=== PATIENT | male | born 1990 | race Hispanic/Latino ===

== ENCOUNTER 2020-03-30 18:58 | Inpatient (IN) | payer OTHER, SELFPAY ==
[~2020-03-30 18:58] MED LIST: Iopamidol-370 76% 500 ML 1 ML ONE
[2020-03-30] MEDS ORDERED: Adacel (T-DAP) 0.5 ML SYRINGE ONE (19:00)
[2020-03-30] MEDS ORDERED: Fentanyl 100 MCG/2 ML VIAL ONE (19:06)
[2020-03-30 19:31] LABS: #Eosinphils 0.1 thou/uL (0.0-0.7); #Lymphocytes 1.2 thou/uL (1.20-3.40); #Monocytes 0.9 thou/uL (0.11-0.59); #Neutrophils 15.7 thou/uL (1.40-6.50); %Basophils 0.1 % (0.0-1.0); %Eosinophils 0.3 % (0.0-10.0); %Lymphocytes 6.5 % (21.0-51.0); %Monocytes 5.2 % (0.0-10.0); %Neutrophils 87.8 % (42.0-75.0); Mean Corpuscular HGB CONC 34.2 g/dL (32.0-36.0); Mean Corpuscular Hemoglobin 31.5 pg (27.0-31.0); Mean Platelet Volume 7.9 fL (7.4-10.4); Platelet Count 224 thou/uL (130-400); RBC Distribution Width 12.1 % (11.5-14.5); Red Blood Cell (RBC) Count 5.08 mill/uL (4.70-6.10); White Blood Cell (WBC) Count 17.8 thou/uL (4.8-10.8)
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
[2020-03-30 19:53] LABS: ALT (SGPT) 15 U/L (8-55); AST (SGOT) 40 U/L (5-34); Albumin 4.4 g/dL (3.5-5.0); Alcohol Less than 10 mg/dL (Less than 10); Alkaline Phosphatase 47 U/L (40-110); Anion Gap 16 mmol/L (10-20); BUN (Urea Nitrogen) 14 mg/dL (8.9-20.6); Bilirubin, Total 0.6 mg/dL (0.2-1.2); Calc. Creatinine Clearance 0 mL/min (70-130); Calcium 9.2 mg/dL (7.8-10.44); Carbon Dioxide 20 mmol/L (22-29); Chloride 106 mmol/L (98-107); Estimated GFR-MDRD 81; Globulin 3.5 g/dL (2.4-3.5); Glucose 154 mg/dL (70-105); Potassium 3.9 mmol/L (3.5-5.1); Protein, Total 7.9 g/dL (6.0-8.3); Sodium 138 mmol/L (136-145)
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
[2020-03-30 21:06] LABS: CKMB 9.6 ng/mL (0-6.6)
[2020-03-30] MEDS ORDERED: Morphine 4 MG/ML VIAL SLOW IVP PRN (21:10)
[2020-03-30] MEDS ORDERED: Dextrose 50% Abboject 50 ML SYRINGE SLOW IVP PRN (21:10)
[2020-03-30] MEDS ORDERED: Dextrose 5% in Water 1,000 ML IV PRN (21:10)
[2020-03-30] MEDS ORDERED: hydrALAZINE 20 MG/ML VIAL SLOW IVP PRN (21:10)
[2020-03-30] MEDS ORDERED: Ondansetron PF 4 MG/2 ML Vial IVP PRN (21:10)
[2020-03-30] MEDS ORDERED: traMADol HCl 50 MG TAB PO PRN ×2 (21:13)
[2020-03-30] MEDS ORDERED: Ondansetron PF 4 MG/2 ML Vial ONE (21:14)
[2020-03-30] MEDS ORDERED: Morphine 4 MG/ML VIAL ONE (21:17)
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
[2020-03-30] MEDS ORDERED: Lidocaine 1% (PF) 30 ML VIAL ONE (23:00)
[2020-03-30] MEDS ORDERED: Promethazine HCl 25 MG/ML VIAL ONE (23:33)
[2020-03-31] MEDS: Acetaminophen 500 MG TAB PO SCH ×4 (01:39→21:49)
[2020-03-31] MEDS: Sodium Chloride 0.9% 1,000 ML IV SCH ×4 (01:39→21:49)
[2020-03-31 01:59] VITALS: BMI 27.8
[2020-03-31 02:48] LABS: Anion Gap 19 mmol/L (10-20); BUN (Urea Nitrogen) 17 mg/dL (8.9-20.6); Calc. Creatinine Clearance 119 mL/min (70-130); Calcium 9.7 mg/dL (7.8-10.44); Carbon Dioxide 22 mmol/L (22-29); Chloride 105 mmol/L (98-107); Estimated GFR-MDRD 79; Glucose 188 mg/dL (70-105); Magnesium 2.2 mg/dL (1.6-2.6); Phosphorus 4.4 mg/dL (2.3-4.7); Sodium 141 mmol/L (136-145)
[2020-03-31 03:13] LABS: CKMB 27.7 ng/mL (0-6.6)
[2020-03-31 03:26] LABS: Band 15 % (5-11); Hemoglobin 15.6 g/dL (14.0-18.0); Lymphocytes 1 % (21-51); MDiff Complete? YES; Mean Corpuscular HGB CONC 33.2 g/dL (32.0-36.0); Mean Corpuscular Hemoglobin 30.9 pg (27.0-31.0); Mean Corpuscular Volume 93.1 fL (78.0-98.0); Mean Platelet Volume 8.6 fL (7.4-10.4); Monocytes 5 % (0-10); Neutrophil 79 % (42-75); Platelet Count 256 thou/uL (130-400); Platelet Morphology Comment Appears Adequate; RBC Distribution Width 12.4 % (11.5-14.5); RBC Morphology Normal; Red Blood Cell (RBC) Count 5.07 mill/uL (4.70-6.10); White Blood Cell (WBC) Count 22.5 thou/uL (4.8-10.8)
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
[2020-03-31] MEDS: Morphine 2 MG/ML VIAL SLOW IVP PRN ×4 (03:40→21:45)
[2020-03-31] MEDS: Gabapentin 300 MG CAP PO SCH ×2 (08:26→21:50)
[2020-03-31] MEDS: Famotidine 20 MG TAB PO SCH ×2 (08:26→21:50)
[2020-03-31] MEDS: Polyethylene Glycol 3350 17 GM Packet PO SCH (08:26)
[2020-03-31] MEDS: Senokot S 8.6-50 MG TAB PO SCH ×2 (09:51→21:50)
[2020-03-31] MEDS ORDERED: PHENYLEPHRINE-NS 100 MCG/ML 10 ML SYRINGE ONE (10:14)
[2020-03-31] MEDS ORDERED: Lidocaine 1% PF 5 ML VIAL ONE (10:14)
[2020-03-31] MEDS ORDERED: Dexamethasone 20 MG/5 ML VIAL ONE (10:14)
[2020-03-31] MEDS ORDERED: Ondansetron PF 4 MG/2 ML Vial ONE ×2 (10:14→17:09)
[2020-03-31] MEDS ORDERED: PROPOFOL 200 MG/20 ML VIAL ONE (10:14)
[2020-03-31] MEDS ORDERED: Rocuronium Bromide 10 MG/ML (10ML VIAL) ONE (10:14)
[2020-03-31] MEDS ORDERED: Ketorolac Tromethamine 30 MG/ML VIAL ONE (10:14)
[2020-03-31 10:57] LABS: Troponin I 0.036 ng/mL (< 0.028)
[2020-03-31 12:48] LABS: SARS-CoV-2 N Gene Positive; SARS-CoV-2 S Gene Negative; SARS-CoV-2 by NAA DETECTED (NotDetected); SARS-CoV-2 orf1ab Positive
[2020-03-31 12:49] LABS: SARS-CoV-2 MS2 Positive
[2020-03-31] MEDS ORDERED: Fentanyl 100 MCG/2 ML VIAL ONE ×2 (14:22→17:10)
[2020-03-31] MEDS ORDERED: HYDROmorphone 0.5 MG/0.5 ML SYRINGE ONE (14:22)
[2020-03-31] MEDS ORDERED: Midazolam HCl 2 mg/2 ml Vial ONE (14:52)
[2020-03-31] MEDS ORDERED: Bupivacaine HCl 0.5%/Epinephrine 1:200,000/PF 30 ml Vial ONE (16:30)
[2020-03-31] MEDS ORDERED: Bupivacaine/Epinephrine 0.25% 30 ML VIAL ONE (16:32)
[2020-03-31] MEDS ORDERED: Promethazine HCl 25 MG/ML VIAL IM PRN (18:07)
[2020-03-31] MEDS ORDERED: Ondansetron HCl/PF 4 MG/2 ML Vial IVP PRN (18:07)
[2020-03-31] MEDS ORDERED: PACU-Morphine 4MG/ML VIAL SLOW IVP PRN (18:07)
[2020-03-31] MEDS ORDERED: Promethazine HCl 25 MG/ML VIAL SLOW IVP PRN (18:07)
[2020-03-31] MEDS ORDERED: HYDROmorphone 2 MG/ML VIAL SLOW IVP PRN (18:07)
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
--- NOTE | 2020-03-31 19:25 | OP ---
DATE OF PROCEDURE: 03/31/2020 PREOPERATIVE DIAGNOSES: 1. Severely comminuted proximal right femoral shaft fractures. 2. Comminuted patellar fractures of the left knee. POSTOPERATIVE DIAGNOSES: 1. Severely comminuted proximal right femoral shaft fractures. 2. Comminuted patellar fractures of the left knee. PROCEDURES PERFORMED: 1. Open reduction and internal fixation using a long trochanteric fixation nail of the right femur. 2. Partial patellectomy and repair of the remaining patella to the patellar tendon. ANESTHESIA: General. TECHNIQUE: The patient was given preoperative IV antibiotics. He was taken to the operating room, placed in the supine position. Satisfactory general anesthesia was performed. The patient was then placed on the fracture table. All bony prominences were well padded. Traction was applied to the right foot and ankle, and C-arm verified good alignment of the comminuted fractures of the proximal to mid shaft of the right femur. An incision was made approximately 3 inches in length, just proximal to the greater trochanter, and under fluoroscopic visualization, a guidepin was placed to the greater trochanter, it was then over-reamed. The guidepin was placed through this portion of the femur, crossing all of the fragments and into the distal portion. Appropriate length kimberly was measured and the femur was then sequentially over-reamed up to 16 mm. A Synthes long trochanteric fixation nail that was 14 mm in diameter and 380 mm in length was inserted, crossing the comminuted fractures into the distal femur. The helical blade was inserted through the kimberly and into the femoral neck and head and was locked into place, and a 5.0 locking screw was placed distally. This allowed for excellent fixation of the fractures of the femur. The wounds were irrigated with antibiotic solution. They were closed using #2 Vicryl for the iliotibial band, 0 Vicryl for the fat and subcutaneous tissue, and the skin was closed with skin adithya. The wounds were infiltrated with a total of 30 mL of 0.25% Marcaine with epinephrine. Sterile dressing was applied. The leg was taken out of leg rush, and attention was then turned to the left lower extremity. It was sterilely prepped and draped in usual fashion. After exsanguination, tourniquet to the left thigh was raised to 250 mmHg. A longitudinal incision was made over the knee, immediately entering the knee joint, there was blood that was evacuated. There was significant comminution of the lower portion of the patella. The upper approximately half of the patella was still present. The holes were drilled through the patella, out the superior aspect of the patella, and the #2 FiberWire was used to capture the patellar tendon in a Marianne type suture and then it was tied over the remaining patella through those tunnels that were drilled previously in the patella. This provided excellent repair of the patella and allowed for preservation of half of the patella. The wound was irrigated and then closed using 0 Vicryl and then the skin was closed with skin adithya, and another 30 mL of 0.25% Marcaine with epinephrine was utilized in the left knee. Sterile dressing was applied and the patient was placed in a knee immobilizer. He was then awakened, extubated, and transferred to recovery room in stable condition. ESTIMATED BLOOD LOSS: 200 mL. COMPLICATIONS: None. TOURNIQUET TIME: On the left thigh was 34 minutes. Job ID: [id number]
--- NOTE | 2020-03-31 19:28 | RAD ---
RIGHT FEMUR TWO VIEWS: 03/31/20 HISTORY: Intraoperative films. This shows a long stem intramedullary kimberly and a gamma type nail in the right hip. The kimberly is stabiliz ing a comminuted proximal femoral shaft fracture in good position. IMPRESSION: Intramedullary kimberly placement for fixation of femoral fracture. POS: [facility]
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
[2020-04-01] MEDS: Acetaminophen 500 MG TAB PO SCH ×5 (00:53→23:47)
[2020-04-01] MEDS: Sodium Chloride 0.9% 1,000 ML IV SCH (05:28)
[2020-04-01] MEDS: Morphine 2 MG/ML VIAL SLOW IVP PRN (05:45)
[2020-04-01] MEDS ORDERED: traMADol HCl 50 MG TAB PO PRN (07:57)
[2020-04-01] MEDS ORDERED: traMADol HCl 50 MG TAB PO SCH (08:00)
[2020-04-01] MEDS: Polyethylene Glycol 3350 17 GM Packet PO SCH (08:18)
[2020-04-01] MEDS: Senokot S 8.6-50 MG TAB PO SCH ×2 (08:19→21:09)
[2020-04-01] MEDS: Gabapentin 300 MG CAP PO SCH ×2 (08:19→21:09)
[2020-04-01] MEDS: Famotidine 20 MG TAB PO SCH ×2 (08:19→21:09)
[2020-04-01] MEDS ORDERED: Enoxaparin Sodium 40 MG/0.4 ML SYRINGE SC SCH (11:00)
[2020-04-01] MEDS ORDERED: Morphine 2 MG/ML VIAL SLOW IVP PRN (14:23)
[2020-04-01] MEDS ORDERED: HYDROcodone/Acetaminophen 10/325 mg Tablet PO PRN (14:24)
[2020-04-01] MEDS: Morphine 4 MG/ML VIAL SLOW IVP PRN ×2 (14:37→17:42)
[2020-04-01] MEDS: HYDROcodone/Acetaminophen 10/325 mg Tablet PO PRN ×2 (15:27→21:12)
--- NOTE | 2020-04-01 15:34 | PRG ---
DATE OF SERVICE: 04/01/2020 SUBJECTIVE: The patient is 1 day status post ORIF of right proximal femoral shaft fracture utilizing kimberly and screws. He underwent partial left patellectomy with repair of the patellar tendon to the remaining superior portion of the patella. He had undergone irrigation and debridement and repair of the right knee laceration, and he has a nondisplaced right calcaneal fracture along with a sternal fracture and some rib fractures. The patient has been in bed and is breathing easy. He has fairly good pain control. OBJECTIVE: VITAL SIGNS: Latest vital signs; temperature 98.6, pulse 99, respiratory rate 18, blood pressure 148/85, O2 saturation 96% on room air. LABORATORY DATA: The patient is positive for COVID-19, which we were aware of preoperatively and took proper precautions. All four extremities are neurovascularly intact. PLAN: The patient will begin working with Physical and Occupational Therapy. He may weightbear as tolerated on the left lower extremity, but needs to avoid flexion of the left knee, and therefore, he is in a knee immobilizer. He needs to be nonweightbearing on the right lower extremity because of the calcaneal fracture. The patient will gradually increase activity and out of bedtime as tolerated. We will reorder additional laboratory tomorrow. Job ID: [id number]
[2020-04-01] MEDS: Ketorolac Tromethamine 30 MG/ML VIAL IVP SCH ×2 (17:04→23:46)
--- NOTE | 2020-04-01 21:44 | PDOC.BPN ---
- Brief Progress Note I have discussed the patient with the advanced practice provider and agree with the findings and plan of care annotated in their note dated 2019. I have examined the patient and reviewed the pertinent radiographic and laboratory findings. Briefly, he is doing well after nailing of his femur and repair of his left patella. PLAN: DVT prophylaxis Physical therapy Placement
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
[2020-04-02] MEDS: Morphine 4 MG/ML VIAL SLOW IVP PRN ×2 (03:52→19:38)
[2020-04-02] MEDS: Ketorolac Tromethamine 30 MG/ML VIAL IVP SCH (05:51)
[2020-04-02 05:52] LABS: #Lymphocytes 1.5 thou/uL (1.20-3.40); #Monocytes 0.9 thou/uL (0.11-0.59); #Neutrophils 5.3 thou/uL (1.40-6.50); %Basophils 0.2 % (0.0-1.0); %Eosinophils 0.5 % (0.0-10.0); %Lymphocytes 19.6 % (21.0-51.0); %Monocytes 11.5 % (0.0-10.0); %Neutrophils 68.1 % (42.0-75.0); Hemoglobin 6.9 g/dL (14.0-18.0); Mean Corpuscular HGB CONC 32.9 g/dL (32.0-36.0); Mean Corpuscular Hemoglobin 30.8 pg (27.0-31.0); Mean Corpuscular Volume 93.5 fL (78.0-98.0); Mean Platelet Volume 7.9 fL (7.4-10.4); Platelet Count 125 thou/uL (130-400); RBC Distribution Width 11.8 % (11.5-14.5); Red Blood Cell (RBC) Count 2.25 mill/uL (4.70-6.10); White Blood Cell (WBC) Count 7.8 thou/uL (4.8-10.8)
[2020-04-02] MEDS: Acetaminophen 500 MG TAB PO SCH ×2 (05:52→12:42)
[2020-04-02 06:01] LABS: Anion Gap 10 mmol/L (10-20); BUN (Urea Nitrogen) 17 mg/dL (8.9-20.6); Calc. Creatinine Clearance 170 mL/min (70-130); Calcium 7.9 mg/dL (7.8-10.44); Carbon Dioxide 25 mmol/L (22-29); Chloride 105 mmol/L (98-107); Estimated GFR-MDRD Greater than 90; Glucose 98 mg/dL (70-105); Magnesium 1.9 mg/dL (1.6-2.6); Phosphorus 2.1 mg/dL (2.3-4.7); Potassium 3.8 mmol/L (3.5-5.1); Sodium 136 mmol/L (136-145)
[2020-04-02 07:14] LABS: Hemoglobin 7.1 g/dL (14.0-18.0); Platelet Count 114 thou/uL (130-400)
[2020-04-02] MEDS ORDERED: Enoxaparin Sodium 40 MG/0.4 ML SYRINGE SC SCH (09:00)
[2020-04-02] MEDS: Senokot S 8.6-50 MG TAB PO SCH ×2 (09:32→20:33)
[2020-04-02] MEDS: Polyethylene Glycol 3350 17 GM Packet PO SCH (09:32)
[2020-04-02] MEDS: Gabapentin 300 MG CAP PO SCH ×2 (09:32→20:32)
[2020-04-02] MEDS: Famotidine 20 MG TAB PO SCH ×2 (09:32→20:32)
[2020-04-02] MEDS: HYDROcodone/Acetaminophen 10/325 mg Tablet PO PRN ×3 (12:42→23:31)
[2020-04-02] MEDS ORDERED: Potassium Phosphate 30 MMOL in Sodium Chloride 0.9% 500 ML IVPB SCH (15:00)
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
[2020-04-02] MEDS ORDERED: Magnesium 2 GM/50 ML 2 GM in Premix Bag 1 BAG IVPB SCH (16:00)
--- NOTE | 2020-04-02 17:30 | PRG ---
DATE OF SERVICE: 04/02/2020 SUBJECTIVE: The patient is 2 days status post intramedullary rodding of comminuted right proximal femoral shaft fracture and partial left patellectomy with repairing of the patellar tendon to the remaining patella. The patient also has a right calcaneus fracture that did not require surgery. He also has been COVID-19 positive. OBJECTIVE: The patient has been afebrile. Vital signs are stable. LABORATORY DATA: Show hemoglobin this morning 6.9, repeat was 7.1. The patient will work with Physical and Occupational Therapy. He can fully weightbear on the left lower extremity, but needs to keep the left knee extended and not allowed to flex. Because of the right calcaneal fracture, he will need to be nondisplaced on the right lower extremity. He will be started on iron for his anemia and the hemoglobin and hematocrit will be rechecked tomorrow. Job ID: [id number]
[2020-04-02 19:12] LABS: Hemoglobin 6.7 g/dL (14.0-18.0)
[2020-04-02] MEDS: Enoxaparin Sodium 40 MG/0.4 ML SYRINGE SC SCH (20:33)
[2020-04-02] MEDS ORDERED: Cyclobenzaprine 10 MG TAB PO PRN (23:19)
[2020-04-02] MEDS ORDERED: Acetaminophen 500 MG TAB PO PRN (23:19)
[2020-04-02] MEDS: Acetaminophen 325 MG TAB PO SCH (23:33)
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
[2020-04-03] MEDS: Morphine 4 MG/ML VIAL SLOW IVP PRN (03:47)
[2020-04-03] MEDS: Acetaminophen 325 MG TAB PO SCH (06:11)
[2020-04-03 07:13] LABS: #Monocytes 0.7 thou/uL (0.11-0.59); #Neutrophils 4.7 thou/uL (1.40-6.50); %Basophils 0.1 % (0.0-1.0); %Eosinophils 0.4 % (0.0-10.0); %Lymphocytes 15.1 % (21.0-51.0); %Monocytes 10.7 % (0.0-10.0); %Neutrophils 73.8 % (42.0-75.0); Hemoglobin 7.8 g/dL (14.0-18.0); Mean Corpuscular HGB CONC 34.4 g/dL (32.0-36.0); Mean Corpuscular Hemoglobin 32.5 pg (27.0-31.0); Mean Corpuscular Volume 94.6 fL (78.0-98.0); Mean Platelet Volume 7.3 fL (7.4-10.4); Platelet Count 151 thou/uL (130-400); RBC Distribution Width 11.6 % (11.5-14.5); White Blood Cell (WBC) Count 6.4 thou/uL (4.8-10.8)
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
[2020-04-03] MEDS: Famotidine 20 MG TAB PO SCH (08:03)
[2020-04-03] MEDS: Gabapentin 300 MG CAP PO SCH ×2 (08:03→20:34)
[2020-04-03] MEDS: Senokot S 8.6-50 MG TAB PO SCH ×2 (08:03→20:33)
[2020-04-03] MEDS: Polyethylene Glycol 3350 17 GM Packet PO SCH (08:04)
[2020-04-03] MEDS ORDERED: Gabapentin 300 MG CAP PO SCH ×2 (09:00→15:00)
[2020-04-03] MEDS ORDERED: Morphine 4 MG/ML VIAL SLOW IVP PRN (09:00)
[2020-04-03] MEDS ORDERED: Ferrous Sulfate 325 MG TAB PO SCH (09:00)
[2020-04-03 09:49] LABS: ALT (SGPT) 13 U/L (8-55); AST (SGOT) 46 U/L (5-34); Alkaline Phosphatase 48 U/L (40-110); Anion Gap 11 mmol/L (10-20); BUN (Urea Nitrogen) 13 mg/dL (8.9-20.6); Bilirubin, Total 0.7 mg/dL (0.2-1.2); Calc. Creatinine Clearance 172 mL/min (70-130); Calcium 8.1 mg/dL (7.8-10.44); Carbon Dioxide 26 mmol/L (22-29); Chloride 102 mmol/L (98-107); Estimated GFR-MDRD Greater than 90; Globulin 2.9 g/dL (2.4-3.5); Glucose 138 mg/dL (70-105); Magnesium 1.9 mg/dL (1.6-2.6); Phosphorus 2.8 mg/dL (2.3-4.7); Potassium 3.8 mmol/L (3.5-5.1); Protein, Total 5.9 g/dL (6.0-8.3); Sodium 135 mmol/L (136-145)
[2020-04-03] MEDS ORDERED: Levothyroxine Sodium 50 MCG TAB PO ONE (10:30)
[2020-04-03] MEDS: traMADol HCl 50 MG TAB PO SCH ×3 (11:44→23:46)
[2020-04-03] MEDS: Acetaminophen 500 MG TAB PO SCH ×3 (11:44→23:46)
[2020-04-03] MEDS: Ibuprofen 600 MG TAB PO SCH ×2 (14:55→20:46)
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
[2020-04-03] MEDS: Ferrous Sulfate 325 MG TAB PO SCH (17:01)
[2020-04-03] MEDS: Ascorbic Acid 500 mg Chewable Tablet PO SCH (17:01)
[2020-04-03] MEDS: Enoxaparin Sodium 40 MG/0.4 ML SYRINGE SC SCH (20:34)
[2020-04-04] MEDS: Acetaminophen 500 MG TAB PO SCH ×3 (05:30→16:58)
[2020-04-04] MEDS: Levothyroxine Sodium 50 MCG TAB PO SCH (05:30)
[2020-04-04] MEDS: traMADol HCl 50 MG TAB PO SCH ×3 (05:30→16:59)
[2020-04-04 05:59] LABS: #Eosinphils 0.1 thou/uL (0.0-0.7); #Lymphocytes 1.3 thou/uL (1.20-3.40); #Monocytes 0.7 thou/uL (0.11-0.59); #Neutrophils 3.1 thou/uL (1.40-6.50); %Basophils 0.5 % (0.0-1.0); %Eosinophils 1.9 % (0.0-10.0); %Lymphocytes 24.2 % (21.0-51.0); %Monocytes 13.7 % (0.0-10.0); %Neutrophils 59.7 % (42.0-75.0); Hemoglobin 7.4 g/dL (14.0-18.0); Mean Corpuscular HGB CONC 31.5 g/dL (32.0-36.0); Mean Corpuscular Hemoglobin 29.6 pg (27.0-31.0); Mean Corpuscular Volume 93.9 fL (78.0-98.0); Mean Platelet Volume 6.9 fL (7.4-10.4); Platelet Count 187 thou/uL (130-400); RBC Distribution Width 11.8 % (11.5-14.5); Red Blood Cell (RBC) Count 2.52 mill/uL (4.70-6.10); White Blood Cell (WBC) Count 5.2 thou/uL (4.8-10.8)
[2020-04-04 06:32] LABS: Anion Gap 11 mmol/L (10-20); BUN (Urea Nitrogen) 15 mg/dL (8.9-20.6); Calc. Creatinine Clearance 185 mL/min (70-130); Calcium 8.6 mg/dL (7.8-10.44); Carbon Dioxide 29 mmol/L (22-29); Chloride 102 mmol/L (98-107); Estimated GFR-MDRD Greater than 90; Glucose 92 mg/dL (70-105); Phosphorus 4.1 mg/dL (2.3-4.7); Potassium 4.1 mmol/L (3.5-5.1); Sodium 138 mmol/L (136-145)
[2020-04-04] MEDS: Senokot S 8.6-50 MG TAB PO SCH ×2 (08:11→20:52)
[2020-04-04] MEDS: Gabapentin 300 MG CAP PO SCH ×2 (08:11→20:52)
[2020-04-04] MEDS: Ascorbic Acid 500 mg Chewable Tablet PO SCH ×2 (08:12→16:58)
[2020-04-04] MEDS: Polyethylene Glycol 3350 17 GM Packet PO SCH (08:12)
[2020-04-04] MEDS: Ibuprofen 600 MG TAB PO SCH ×3 (08:12→20:52)
[2020-04-04] MEDS: Ferrous Sulfate 325 MG TAB PO SCH ×2 (08:12→16:59)
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
[2020-04-04] MEDS: Enoxaparin Sodium 40 MG/0.4 ML SYRINGE SC SCH (20:52)
[2020-04-05] MEDS: traMADol HCl 50 MG TAB PO SCH ×4 (00:28→17:32)
[2020-04-05] MEDS: Acetaminophen 500 MG TAB PO SCH ×4 (00:29→17:33)
[2020-04-05] MEDS: Levothyroxine Sodium 50 MCG TAB PO SCH (05:36)
[2020-04-05 07:27] LABS: #Eosinphils 0.1 thou/uL (0.0-0.7); #Lymphocytes 1.5 thou/uL (1.20-3.40); #Monocytes 0.8 thou/uL (0.11-0.59); #Neutrophils 4.1 thou/uL (1.40-6.50); %Basophils 0.2 % (0.0-1.0); %Lymphocytes 22.6 % (21.0-51.0); %Neutrophils 63.2 % (42.0-75.0); Hemoglobin 7.8 g/dL (14.0-18.0); Mean Corpuscular HGB CONC 33.4 g/dL (32.0-36.0); Mean Corpuscular Hemoglobin 31.3 pg (27.0-31.0); Mean Corpuscular Volume 93.5 fL (78.0-98.0); Mean Platelet Volume 7.1 fL (7.4-10.4); Platelet Count 251 thou/uL (130-400); RBC Distribution Width 11.6 % (11.5-14.5); Red Blood Cell (RBC) Count 2.49 mill/uL (4.70-6.10); White Blood Cell (WBC) Count 6.5 thou/uL (4.8-10.8)
[2020-04-05] MEDS: Ferrous Sulfate 325 MG TAB PO SCH ×2 (08:13→17:32)
[2020-04-05] MEDS: Senokot S 8.6-50 MG TAB PO SCH (08:13)
[2020-04-05] MEDS: Polyethylene Glycol 3350 17 GM Packet PO SCH (08:13)
[2020-04-05] MEDS: Ascorbic Acid 500 mg Chewable Tablet PO SCH ×2 (08:13→17:33)
[2020-04-05] MEDS: Ibuprofen 600 MG TAB PO SCH ×2 (08:13→14:32)
[2020-04-05] MEDS: Gabapentin 300 MG CAP PO SCH (08:13)
[2020-04-05 19:44] VITALS: BP 128/78; TEMP 98.5
[2020-04-05] MEDS ORDERED: Apixaban 2.5 MG TAB PO SCH (21:00)
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
== END 2020-04-05 19:15 | disposition home or self-care (01) | DRG 480 ==
LOC: ERS 18:58 → 2NO 21:13 → EDBD 21:13 → T4-A 03-31 15:50
PROVIDERS: ADMIT Surgery; ATTEND Surgery
PROC: 0QS604Z Reposition Right Upper Femur with Internal Fixation Device, Open Approach (ICD-10-PCS; principal; 2020-03-31)
PROC: 0LQR0ZZ Repair Left Knee Tendon, Open Approach (ICD-10-PCS; 2020-03-31)
PROC: 30233N1 Transfusion of Nonautologous Red Blood Cells into Peripheral Vein, Percutaneous Approach (ICD-10-PCS; 2020-04-02)
DX: S72.91XA Unspecified fracture of right femur, initial encounter for closed fracture (principal); U07.1 COVID-19; S82.042A Displaced comminuted fracture of left patella, initial encounter for closed fracture; S22.20XA Unspecified fracture of sternum, initial encounter for closed fracture; D62 Acute posthemorrhagic anemia; E87.6 Hypokalemia; E83.42 Hypomagnesemia; E83.39 Other disorders of phosphorus metabolism; D69.6 Thrombocytopenia, unspecified; S92.001A Unspecified fracture of right calcaneus, initial encounter for closed fracture; I10 Essential (primary) hypertension; V89.2XXA Person injured in unspecified motor-vehicle accident, traffic, initial encounter
CPT/HCPCS: 12005; 36415; 36430; 70450; 71045; 71260; 72125; 72170; 74177; 76000; 80048; 80053; 80307; 82550; 82553; 83735; 84100; 84484; 85025; 86850; 86900; 86901; 87040; 87070; 87205; 87635; 90471; 90715; 93005; 93010; 93306; 96365; 96367; 96375; C1713; G0390; J0670; J0690; J1100; J1170; J1650; J1885; J2001; J2250; J2270; J2405; J2550; J2704; J3010; J3475; J7030; P9016; Q9967; U0003